=== PATIENT | male | born 1955 | race Caucasian/White ===

== ENCOUNTER 2020-09-15 05:30 | Day surgery (SDC) | payer OTHER, MEDICARE ==
[~2020-09-15] VITALS: Ht 160 cm; Wt 81.6 kg
[2020-09-15] MEDS ORDERED: CEFAZOLIN 2 GM IVPB PREMIX 50 ML IV ONE (06:49)
[2020-09-15] MEDS ORDERED: KETOROLAC TROMETHAMINE 30 MG VIAL IVP PRN (08:15)
[2020-09-15] MEDS ORDERED: MEPERIDINE HCL/PF 25 MG/ML DISP.SYRIN IVP PRN (08:15)
[2020-09-15] MEDS ORDERED: HYDROmorphone 1 MG INJ. 1 MG/ML AMPUL IVP PRN (08:15)
[2020-09-15] MEDS ORDERED: ONDANSETRON HCL 4 MG/2 ML VIAL IVP PRN (08:15)
[2020-09-15] MEDS ORDERED: LR 1,000 ML IV SCH (08:15)
[2020-09-15 10:00] VITALS: BP_SYST 129
[2020-09-15] MEDS ORDERED: KETOROLAC TROMETHAMINE 30 MG VIAL ONE (10:17)
[2020-09-15] MEDS ORDERED: KETOROLAC TROMETHAMINE 30 MG VIAL IVP ONE (10:20)
== END 2020-09-15 12:10 | disposition home or self-care (01) ==
LOC: SDS 05:30
PROVIDERS: ATTEND Orthopaedic Surgery
DX: G56.01 Carpal tunnel syndrome, right upper limb (principal); G56.21 Lesion of ulnar nerve, right upper limb
CPT/HCPCS: 29848; 64718; J0690; J1885